=== PATIENT | male | born 1950 | race Caucasian/White ===

== ENCOUNTER → 2017-11-15 | Outpatient (CLI) | payer OTHER | END | disposition home or self-care (01) | LOC: PLD 13:27 → LAB SHORT 13:27 | DX: D48.5 Neoplasm of uncertain behavior of skin (principal) | CPT/HCPCS: 88305 ==

== ENCOUNTER 2018-11-02 12:17 | Emergency (ER) | payer OTHER ==
[~2018-11-02] VITALS: Ht 182.9 cm; Wt 83.0 kg
[2018-11-02] MEDS ORDERED: PROZAC20 MG PO (12:54)
[2018-11-02] MEDS ORDERED: LISI20 PO (12:55)
== END 2018-11-02 13:17 | disposition home or self-care (01) ==
LOC: ER 12:17
DX: R10.31 Right lower quadrant pain (principal); Z79.899 Other long term (current) drug therapy; Z87.891 Personal history of nicotine dependence
CPT/HCPCS: 99283

== ENCOUNTER → 2020-05-30 | Outpatient (CLI) | payer OTHER ==
[~2020-05-30] MED LIST: LISI20 PO; PROZAC20 MG PO
== END | disposition home or self-care (01) ==
LOC: PLD 11:12 → LAB SHORT 11:12
DX: C44.212 Basal cell carcinoma of skin of right ear and external auricular canal (principal)
CPT/HCPCS: 88305

== ENCOUNTER → 2022-07-22 | Outpatient (CLI) | payer OTHER ==
[2022-07-22 18:56] LABS: BASOPHILS ABSOLUTE AUTO 0.05 K/mm3 (0.00-0.23); BASOPHILS PERCENT AUTO 1 % (0-2); EOSINOPHILS ABSOLUTE AUTO 0.12 K/mm3 (0.00-0.68); EOSINOPHILS PERCENT AUTO 2 % (0-6); Hematocrit 41.3 % (37.0-53.0); Hemoglobin 14.2 g/dL (13.5-17.5); IMMATURE GRAN ABSOLUTE AUTO 0.01 K/mm3 (0.00-0.10); IMMATURE GRAN PERCENT AUTO 0 % (0-1); LYMPHOCYTES ABSOLUTE AUTO 1.98 K/mm3 (0.84-5.20); LYMPHOCYTES PERCENT AUTO 29 % (21-46); MONOCYTES ABSOLUTE AUTO 0.78 K/mm3 (0.16-1.47); MONOCYTES PERCENT AUTO 11 % (4-13); Mean Corpuscular HGB 32.6 pg (26.0-34.0); Mean Corpuscular HGB Conc 34.4 g/dL (31.5-36.5); Mean Corpuscular Volume 95 fL (80-100); Mean Platelet Volume 11.4 fL (9.1-12.4); NEUTROPHILS ABSOLUTE AUTO 3.94 K/mm3 (1.96-9.15); NEUTROPHILS PERCENT AUTO 57 % (41-73); Platelet Count 200 K/mm3 (150-400); RDW Coefficient Variation 12.7 % (11.7-14.2); RDW Standard Deviation 43.9 fL (35.1-46.3); Red Blood Cell Count 4.36 M/mm3 (4.30-5.90); White Blood Cell Count 6.88 K/mm3 (4.00-11.30)
[2022-07-22 19:37] LABS: Albumin, Blood 3.7 g/dL (3.4-5.0); Alk Phos 69 U/L (50-136); Anion Gap 5 mmol/L (6-16); Aspartate Aminotrans (AST/SGOT 25 U/L (12-37); Blood Urea Nitrogen 18 mg/dL (8-24); CHOL/HDL RATIO 4.2; CO2, Blood 27 mmol/L (21-32); Calcium, Blood 9.2 mg/dL (8.5-10.1); Chloride, Blood 106 mmol/L (98-108); Cholesterol 171 mg/dL (50-200); Glucose, Blood 100 mg/dL (70-99); HDL Cholesterol 41 mg/dL (>39); LDL/HDL RATIO 2.5; Low Density Lipoprotein Chol 101 mg/dL (0-110); Potassium, Blood 4.4 mmol/L (3.5-5.5); Sodium, Blood 138 mmol/L (136-145); Triglycerides 146 mg/dL (30-160); Very Low Density Lipoprot Chol 29 mg/dL (6-32)
[2022-07-22 19:43] LABS: Alanine Aminotransfer (ALT/SGP 28 U/L (12-78); Albumin/Globulin Ratio 1.2 (0.8-1.8); Bilirubin, Total 0.3 mg/dL (0.1-1.0); Bun/Creatinine Ratio 22.2 (12.0-20.0); Creatinine, Blood 0.81 mg/dL (0.60-1.20); Glomerular Filtration Rate 93 (60-); Total Protein, Blood 6.7 g/dL (6.4-8.2)
== END | disposition home or self-care (01) ==
LOC: LAB 12:08 → LAB SHORT 12:08
PROVIDERS: Physician Assistant
DX: R73.03 Prediabetes (principal); I10 Essential (primary) hypertension; Z79.899 Other long term (current) drug therapy
CPT/HCPCS: 36415; 80053; 80061; 82306; 83036; 84443; 85025

== ENCOUNTER 2023-07-15 07:45 | Day surgery (SDC) | payer OTHER ==
[~2023-07-15] VITALS: Ht 182.9 cm; Wt 80.3 kg
[~2023-07-15 07:45] MED LIST changes: +ATOR10 PO
--- NOTE | 2023-07-15 08:17 | NUR ---
07/15/23 0817 Luz Arriaga AT [address] AT 0810
[2023-07-15] MEDS ORDERED: Vitamin C100 M1 PO (08:18)
[2023-07-15] MEDS ORDERED: L-Lysine500 M1 PO (08:19)
[2023-07-15] MEDS ORDERED: Crestor20 MG PO (08:19)
[2023-07-15] MEDS ORDERED: PRESERVISION A1 EAC4 PO (08:20)
[2023-07-15 09:12] VITALS: BP 138/78
--- NOTE | 2023-07-15 09:14 | NUR ---
07/15/23 0914 BEAU GRIMALDO IV REMOVED W/O DIFF. CANNULA INTACT. WNL. HAO WELL.
== END 2023-07-15 09:25 | disposition home or self-care (01) ==
LOC: ORSCSDS 07:45
PROVIDERS: Ophthalmology
PROC: 08RJ3JZ Replacement of Right Lens with Synthetic Substitute, Percutaneous Approach (ICD-10-PCS; principal; 2023-07-15 09:00)
DX: H25.11 Age-related nuclear cataract, right eye (principal); I10 Essential (primary) hypertension; J45.909 Unspecified asthma, uncomplicated; H35.30 Unspecified macular degeneration; H02.839 Dermatochalasis of unspecified eye, unspecified eyelid; F17.200 Nicotine dependence, unspecified, uncomplicated; Z79.899 Other long term (current) drug therapy
CPT/HCPCS: J2001; J2250; J3010; J3301; J7040; V2632

== ENCOUNTER 2023-07-22 07:45 | Day surgery (SDC) | payer OTHER ==
[~2023-07-22] VITALS: Ht 182.9 cm; Wt 80.0 kg
[~2023-07-22 07:45] MED LIST changes: +Crestor20 MG PO; +L-Lysine500 M1 PO; +PRESERVISION A1 EAC4 PO; +Vitamin C100 M1 PO
[2023-07-22 09:12] VITALS: BP 127/56
--- NOTE | 2023-07-22 09:29 | NUR ---
07/22/23 0929 BEAU GRIMALDO IV REMOVED WO DIFF, HAO WELL, CANNULA INTACT
== END 2023-07-22 09:30 | disposition home or self-care (01) ==
LOC: ORSCSDS 07:45
PROVIDERS: Ophthalmology
PROC: 08RK3JZ Replacement of Left Lens with Synthetic Substitute, Percutaneous Approach (ICD-10-PCS; principal; 2023-07-22 09:00)
DX: H25.12 Age-related nuclear cataract, left eye (principal); Z96.1 Presence of intraocular lens; Z87.891 Personal history of nicotine dependence; I10 Essential (primary) hypertension; H35.30 Unspecified macular degeneration; Z79.899 Other long term (current) drug therapy
CPT/HCPCS: J2001; J2250; J3301; J7040; V2632